=== PATIENT | female | born 1930 | race Caucasian/White ===

== ENCOUNTER 2019-06-24 18:55 | Emergency (ER) | payer MEDICARE, BC ==
[2019-06-24 19:19] VITALS: BP 164/77; PULSE 95
--- NOTE | 2019-06-24 19:52 | EDM.PDOC ---
ED HPI GENERAL MEDICAL PROBLEM - General Chief Complaint: General Stated Complaint: WEAKNESS LEFT LEG AND ARM Time Seen by Provider: 06/24/19 19:46 Source of Information: Reports: Patient History Limitations: Reports: No Limitations - History of Present Illness INITIAL COMMENTS - FREE TEXT/NARRATIVE: Patient is an 88-year-old female who presents to the emergency department this evening with a complaint of bilateral upper extremity and left lower extremity weakness. Patient states approximately 9 a.m. yesterday morning while sitting on the couch, she had the sensation of numbness and tingling to bilateral hands and left lower extremity. Patient states that it was intermittent throughout the day. When she woke this morning she had the same sensation. Her son told her that he noticed she might be walking funny and was concerned. decided to bring her to emergency department for evaluation this evening. Patient denies chest pain, shortness of breath, headache, dizziness, blurry vision, facial numbness, nausea, vomiting, diarrhea, any falls or syncopal episodes. Onset: Gradual Duration: Day(s): Location: Reports: Upper Extremity, Left, Upper Extremity, Right, Lower Extremity, Left Quality: Reports: Other (Numbness and tingling) Improves with: Reports: Other (Spontaneously) Worsens with: Reports: None Associated Symptoms: Reports: No Other Symptoms. Denies: Chest Pain, Cough, Diaphoresis, Fever/Chills, Headaches, Nausea/Vomiting, Shortness of Breath - Related Data Allergies Allergy/AdvReac Type Severity Reaction Status Date / Time Penicillins Allergy Rash Verified 06/24/19 19:19 Sulfa (Sulfonamide Allergy Rash Verified 06/24/19 19:19 Antibiotics) Home Meds: Home Meds Denosumab [Prolia] 60 mg SUBCUT ASDIRECTED 02/18/16 [History] Levothyroxine 88 mcg PO ACBREAKFAST 02/18/16 [History] Calcium Carbonate/Vitamin D3 [Calcium Carb 500 MG] 2 tab PO DAILY 02/14/18 [ History] Omeprazole 20 mg PO DAILY 02/14/18 [History] Anastrozole [Arimidex] 1 mg PO DAILY 08/14/18 [History] Benzonatate 100 mg PO TID PRN 08/14/18 [History] Past Medical History HEENT History: Reports: Cataract, Hard of Hearing, Impaired Vision Gastrointestinal History: Reports: None 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 Endocrine/Metabolic History: Reports: Hypothyroidism Oncologic (Cancer) History: Reports: Breast, Other (See Below) Other Oncologic History: Right breast - Infectious Disease History Infectious Disease History: Reports: Mumps - Past Surgical History GI Surgical History: Reports: Cholecystectomy, Colonoscopy Female Surgical History: Reports: Hysterectomy Endocrine Surgical History: Reports: None Musculoskeletal Surgical History: Reports: Shoulder Surgery Oncologic Surgical History: Reports: Biopsy of Breast, Lumpectomy Social & Family History - Family History Family Medical History: Noncontributory - Tobacco Use Smoking Status *Q: Never Smoker - Caffeine Use Caffeine Use: Reports: Coffee - Recreational Drug Use Recreational Drug Use: No ED ROS GENERAL - Review of Systems Review Of Systems: ROS reveals no pertinent complaints other than HPI. Constitutional: Reports: Weakness HEENT: Reports: No Symptoms Respiratory: Reports: No Symptoms Cardiovascular: Reports: No Symptoms Endocrine: Reports: No Symptoms GI/Abdominal: Reports: No Symptoms : Reports: No Symptoms Musculoskeletal: Reports: No Symptoms Skin: Reports: No Symptoms Neurological: Reports: Numbness (Bilateral upper extremities and left lower extremity) Psychiatric: Reports: No Symptoms Hematologic/Lymphatic: Reports: No Symptoms Immunologic: Reports: No Symptoms ED EXAM, GENERAL - Physical Exam Exam: See Below Exam Limited By: No Limitations General Appearance: Alert, WD/WN, No Apparent Distress Eye Exam: Bilateral Eye: Normal Inspection Nose: Normal Inspection, Normal Mucosa, No Blood Throat/Mouth: Normal Inspection, Normal Oropharynx, No Airway Compromise Head: Atraumatic, Normocephalic Neck: Normal Inspection, Supple, Non-Tender, Full Range of Motion Respiratory/Chest: No Respiratory Distress, Lungs Clear, Normal Breath Sounds, No Accessory Muscle Use, Chest Non-Tender Cardiovascular: Normal Peripheral Pulses, Regular Rate, Rhythm, No Murmur Peripheral Pulses: 2+: Brachial (L), Brachial (R), Radial (L), Radial (R), Posterior Tibial (L), Posterior Tibial (R), Dorsalis Pedis (L), Dorsalis Pedis ( R) GI/Abdominal: Normal Bowel Sounds, Soft, Non-Tender, No Organomegaly, No Distention, No Abnormal Bruit, No Mass Back Exam: Normal Inspection. No: CVA Tenderness (L), CVA Tenderness (R) Extremities: Normal Inspection, Normal Range of Motion, Non-Tender, No Pedal Edema, Normal Capillary Refill Neurological: Alert, Oriented, CN II-XII Intact, Normal Cognition, Normal Gait, No Motor/Sensory Deficits Psychiatric: Normal Affect, Normal Mood Skin Exam: Warm, Dry, Intact, Normal Color, No Rash Lymphatic: No Adenopathy Course - Vital Signs Last Recorded V/S: Last Vital Signs Temp 98.0 F 06/24/19 19:15 Pulse 95 06/24/19 19:15 Resp 18 06/24/19 19:15 BP 164/77 H 06/24/19 19:15 Pulse Ox 94 L 06/24/19 19:15 - Radiology Interpretation Free Text/Narrative:: CT head negative for intracranial process - Re-Assessments/Exams Free Text/Narrative Re-Assessment/Exam: 06/24/19 20:30 Patient afebrile, vital signs stable, symptoms have since resolved. Patient has been is at bedside. Patient will follow-up with Dr. Schultz in next 2-3 days. Departure - Departure Time of Disposition: 20:30 Disposition: Home, Self-Care 01 Clinical Impression: Weakness - Discharge Information Instructions: Weakness, [id number] Referrals: Romina Stover MD [Primary Care Provider] - Forms: ED Department Discharge Additional Instructions: Follow-up with Dr. Schultz next 2-3 days. Return to emergency department sooner if symptoms continue or worsen. Caution when rising from a seated position. - Assessment/Plan Assessment:: Weakness Plan: Follow-up at the clinic
--- NOTE | 2019-06-24 20:23 | CT ---
[id number] CT/CT Head WO IV EXAM: CT Head WO IV CLINICAL DATA: WEAKNESS COMPARISON STUDY: None FINDINGS: No intracranial hemorrhage, extra-axial fluid collection, mass, or acute ischemia. 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 Paranasal sinuses and mastoid air cells are clear. IMPRESSION: No acute intracranial findings. Duane Mar MD 06/24/192021 Thank you for allowing us to participate in the care of your patient.
== END 2019-06-24 20:35 | disposition home or self-care (01) ==
LOC: KA.ED 18:55
DX: R53.1 Weakness (principal); E03.9 Hypothyroidism, unspecified; Z88.0 Allergy status to penicillin; Z79.890 Hormone replacement therapy
CPT/HCPCS: 70450; 99285-25

== ENCOUNTER 2021-05-15 16:55 | Emergency (ER) | payer MEDICARE, BC ==
--- NOTE | 2021-05-15 17:18 | EDM.PDOC ---
ED HPI GENERAL MEDICAL PROBLEM - General Chief Complaint: Genitourinary Problem Stated Complaint: BLADDER INFECTION? Time Seen by Provider: 05/15/21 17:05 Source of Information: Reports: Patient, Family (daughter) - History of Present Illness INITIAL COMMENTS - FREE TEXT/NARRATIVE: Pleasant 89-year-old female presents to the emergency room with her daughter with concern for possible UTI. Family is coming back from [place] for a wedding this weekend and patient began in experiencing some discomfort urgency and frequency with urinating. She denies significant hematuria or dysuria. She states she is she is a poor oral intake with water but drinks quite a bit of coffee. She has been able to be very independent still lives at home and cares for her 91-year-old . He has had a previous a stroke and she manages his cares at home. In the last 10 days she is has had increasing pain mainly across the beltline of the low back rating to both legs. She has had to use a walker. She does get some sciatica type pain going down her legs. She reports her walking distances decreased over the last year and feels that she could not walk more than a block or 2. She is having more frequent episodes she feels of urgency and starting to go to the bathroom. Denies loss of bowel or bladder control. She denies any retention. She denies any saddle paresthesias. She is followed by Dr. Romina Schultz. She has physical therapy scheduled for her lower back and discussion to meet with Kellie Diego for injection was discussed with her. They did discuss possibly proceeding with an MRI of her lumbar spine. Denies experiencing any fever or chills, shortness of breath, chest pain, abdominal pain. Onset: Gradual Onset Date: 05/14/21 Duration: Day(s):, Recurring Location: Reports: Back, Lower Extremity, Left, Lower Extremity, Right Quality: Reports: Ache Severity: Moderate Improves with: Reports: Rest Worsens with: Reports: Other (Ambulation) Associated Symptoms: Reports: No Other Symptoms Lower Back Pain Score (Numeric/FACES): 5 - Related Data Allergies Allergy/AdvReac Type Severity Reaction Status Date / Time Penicillins Allergy Rash Verified 05/15/21 17:57 Sulfa (Sulfonamide Allergy Rash Verified 05/15/21 17:57 Antibiotics) Home Meds: Home Meds Denosumab [Prolia] 60 mg SUBCUT ASDIRECTED 02/18/16 [History] Levothyroxine 88 mcg PO ACBREAKFAST 02/18/16 [History] Calcium Carbonate/Vitamin D3 [Calcium Carb 500 MG] 2 tab PO DAILY 02/14/18 [History] Mirtazapine 15 mg PO BEDTIME PRN 07/14/20 [History] Fluocinonide [Lidex 0.05% Crm] 1 applic VAG ASDIRECTED PRN 05/15/21 [History] Past Medical History HEENT History: Reports: Cataract, Hard of Hearing, Impaired Vision Gastrointestinal History: Reports: None 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 Endocrine/Metabolic History: Reports: Hypothyroidism Oncologic (Cancer) History: Reports: Breast, Other (See Below) Other Oncologic History: Right breast - Infectious Disease History Infectious Disease History: Reports: Mumps - Past Surgical History HEENT Surgical History: Reports: Tonsillectomy GI Surgical History: Reports: Cholecystectomy, Colonoscopy Female Surgical History: Reports: Hysterectomy Endocrine Surgical History: Reports: None Musculoskeletal Surgical History: Reports: Shoulder Surgery Oncologic Surgical History: Reports: Biopsy of Breast, Lumpectomy Social & Family History - Family History Family Medical History: No Pertinent Family History - Caffeine Use Caffeine Use: Reports: Coffee ED ROS GENERAL - Review of Systems Review Of Systems: See Below Constitutional: Reports: No Symptoms HEENT: Reports: No Symptoms Respiratory: Reports: No Symptoms Cardiovascular: Reports: No Symptoms Endocrine: Reports: No Symptoms GI/Abdominal: Reports: No Symptoms : Reports: Frequency, Urgency, Urinary Retention. Denies: Dysuria Musculoskeletal: Reports: No Symptoms Skin: Reports: No Symptoms Neurological: Reports: Numbness, Paresthesia, Difficulty Walking, Weakness Psychiatric: Reports: No Symptoms Hematologic/Lymphatic: Reports: No Symptoms Immunologic: Reports: No Symptoms ED EXAM, RENAL/ - Physical Exam Exam: See Below Exam Limited By: No Limitations General Appearance: Alert, WD/WN, No Apparent Distress Eye Exam: Bilateral Eye: EOMI Ears: Hearing Loss Nose: Normal Inspection Throat/Mouth: Normal Inspection, Normal Voice, No Airway Compromise Head: Atraumatic, Normocephalic Neck: Normal Inspection, Supple, Non-Tender, Full Range of Motion. No: Lymphadenopathy (L), Lymphadenopathy (R) Respiratory/Chest: No Respiratory Distress, Lungs Clear, Normal Breath Sounds, No Accessory Muscle Use, Chest Non-Tender Cardiovascular: Normal Peripheral Pulses, Regular Rate, Rhythm GI/Abdominal: Normal Bowel Sounds, Soft, Non-Tender, No Organomegaly, No Distention, No Abnormal Bruit, No Mass, Pelvis Stable Back Exam: Normal Inspection, Full Range of Motion Extremities: Normal Inspection, Normal Range of Motion, Non-Tender, No Pedal Edema, Normal Capillary Refill Neurological: Alert, Oriented, CN II-XII Intact, Normal Cognition, Normal Gait, No Motor/Sensory Deficits Psychiatric: Normal Affect, Normal Mood Skin Exam: Warm, Dry, Intact, Normal Color, No Rash Lymphatic: No Adenopathy Course - Vital Signs Last Recorded V/S: Last Vital Signs Temp 97.3 F 05/15/21 17:08 Pulse 88 05/15/21 17:08 Resp 16 05/15/21 17:08 BP 193/91 H 05/15/21 17:08 Pulse Ox 99 05/15/21 17:08 - Orders/Labs/Meds Labs: Laboratory Tests 05/15/21 05/15/21 05/15/21 Range/Units 17:50 18:25 18:25 WBC 9.50 (5.00-10.00) 10^3/uL RBC 4.78 (3.80-5.50) 10^6/uL Hgb 14.1 D (12.0-16.0) g/dL Hct 40.9 (37.0-47.0) % MCV 85.6 D (82.0-92.0) fL MCH 29.5 (27.0-31.0) pg MCHC 34.5 (32.0-36.0) g/dL RDW 12.7 (11.5-14.5) % Plt Count 275 (150-400) 10^3/uL MPV 10.2 (7.4-10.4) fL Immature Gran % (Auto) 0.2 (0.0-5.0) % Neut % (Auto) 60.4 (50.0-70.0) % Lymph % (Auto) 31.4 (20.0-40.0) % [place] % (Auto) 7.2 (2.0-8.0) % Eos % (Auto) 0.6 L (1.0-3.0) % Baso % (Auto) 0.2 (0.0-1.0) % Neut # (Auto) 5.74 (2.50-7.00) 10^3/uL Lymph # (Auto) 2.98 (1.00-4.00) 10^3/uL [place] # (Auto) 0.68 (0.10-0.80) 10^3/uL Eos # (Auto) 0.06 L (0.10-0.30) 10^3/uL Baso # (Auto) 0.02 (0.00-0.10) 10^3/uL Immature Gran # (Auto) 0.02 (0.00-0.50) 10^3/uL Sodium 119 L* D (136-145) mmol/L Potassium 4.0 (3.5-5.1) mmol/L Chloride 84 L* D (98-107) mmol/L Carbon Dioxide 25.3 (21.0-32.0) mmol/L Anion Gap 13.7 (5-15) mmol/L BUN 13 (7-18) mg/dL Creatinine 0.58 (0.51-1.17) mg/dL Est Cr Clr Drug Dosing 48.16 mL/min Estimated GFR (MDRD) > 60 mL/min Glucose 100 (70-140) mg/dL Calcium 8.1 L (8.7-10.3) mg/dL Total Bilirubin 0.7 (0.2-1.0) mg/dL AST 20 (15-37) U/L ALT 30 (14-63) U/L Alkaline Phosphatase 41 L (46-116) U/L Total Protein 7.5 (6.4-8.2) g/dL Albumin 4.10 (3.40-5.00) g/dL Specimen Type Urincc Urine Color Yellow (YELLOW) Urine Appearance Clear (CLEAR) Urine pH 7.0 (5.0-9.0) Ur Specific [place] 1.020 (1.005-1.030) Urine Protein Trace H (NEGATIVE) mg/dL Urine Glucose (UA) Negative (NEGATIVE) mg/dL Urine Ketones Trace H (NEGATIVE) mg/dL Urine Occult Blood Moderate H (NEGATIVE) Urine Nitrite Negative (NEGATIVE) Urine Bilirubin Negative (NEGATIVE) Urine Urobilinogen 0.2 (0.2-1.0) E.U./dL Ur Leukocyte Esterase Negative (NEGATIVE) Urine RBC 5-10 H (0-5) /HPF Urine WBC Not seen (0-5) /HPF Ur Epithelial Cells Few /LPF Urine Bacteria Not seen (NONE TO FEW) /HPF Meds: Medications Discontinued Medications Generic Name Dose Route Start Last Admin Trade Name Vincentq PRN Reason Stop Dose Admin Sodium Chloride 1,000 mls @ 1,000 mls/hr 05/15/21 18:13 05/15/21 18:34 Normal Saline IV 05/15/21 19:12 1,000 mls/hr .BOLUS ONE Administration Departure - Departure Time of Disposition: 19:44 Disposition: Home, Self-Care 01 Condition: Good Clinical Impression: Hyponatremia with extracellular fluid depletion, Dehydration with hypernatremia Spinal stenosis of lumbar region Qualifiers: Neurogenic claudication status: without neurogenic claudication Qualified Code(s): M48.061 - Spinal stenosis, lumbar region without neurogenic claudication - Discharge Information Instructions: Hyponatremia, [id number], Spinal Stenosis, [id number], Decision Aid - Spinal Stenosis Referrals: Romina Stover MD [Primary Care Provider] - Forms: ED Department Discharge Additional Instructions: 1. f/u with Dr Vanegas next week. 2. Repeat BMP next week. 3. Encouraged to drink more fluids throughout the day. 4. MRI lumbar spine for spinal stenosis. Sepsis Event Note (ED) - Focused Exam Vital Signs: Vital Signs Temp Pulse Resp BP Pulse Ox 05/15/21 17:08 97.3 F 88 16 193/91 H 99 - Assessment/Plan Assessment:: Hyponatremia Spinal stenosis Dehydration Plan: 1. f/u with Dr Vanegas next week. 2. Repeat BMP next week. 3. Encouraged to drink more fluids throughout the day. 4. MRI lumbar spine for spinal stenosis.
[2021-05-15] MEDS ORDERED: Sodium Chloride 0.9% 1,000 ML IV ONE (18:13)
[2021-05-15 18:53] LABS: ANION GAP 13.7 mmol/L (5-15)
[2021-05-15 19:00] LABS: SODIUM,NA 119 mmol/L (136-145)
[2021-05-15 19:01] LABS: CHLORIDE,CL 84 mmol/L (98-107)
[2021-05-15 20:18] VITALS: BP 138/76; PULSE 91
== END 2021-05-15 19:55 | disposition home or self-care (01) ==
LOC: KA.ED 16:55
DX: M48.061 Spinal stenosis, lumbar region without neurogenic claudication (principal); E86.0 Dehydration; E87.0 Hyperosmolality and hypernatremia; E87.1 Hypo-osmolality and hyponatremia; E03.9 Hypothyroidism, unspecified; Z79.899 Other long term (current) drug therapy; Z88.0 Allergy status to penicillin; Z88.2 Allergy status to sulfonamides
CPT/HCPCS: 36415; 80053; 81001; 85025; 99283; 99284; J7030

== ENCOUNTER 2021-05-16 11:28 | Inpatient (IN) | payer MEDICARE, BC ==
[2021-05-16] MEDS ORDERED: Sodium Chloride 0.9% 10 ML Syringe FLUSH PRN (11:29)
[2021-05-16] MEDS ORDERED: Ondansetron 4 MG/2 ML SDV IVPUSH ONE (11:30)
[2021-05-16] MEDS: Sodium Chloride 0.9% 1,000 ML IV SCH ×2 (12:23→20:33)
[2021-05-16 13:27] LABS: SODIUM,NA 120 mmol/L (136-145)
[2021-05-16] MEDS ORDERED: Mirtazapine 15 MG Tab PO PRN (13:32)
[2021-05-16] MEDS ORDERED: FLUOCINONIDE VAG PRN (13:32)
[2021-05-16] MEDS ORDERED: Acetaminophen 325 MG Tab PO PRN (13:33)
[2021-05-16] MEDS ORDERED: Ondansetron 4 MG/2 ML SDV IVPUSH PRN (13:35)
[2021-05-16] MEDS ORDERED: Denosumab 60 MG/1 ML Syringe SUBCUT SCH (13:45)
[2021-05-16 14:22] LABS: CHLORIDE,CL 86 mmol/L (98-107)
--- NOTE | 2021-05-16 14:29 | PCM.HP.2 ---
H&P History of Present Illness - General Date of Service: 05/16/21 Admit Problem/Dx: Admission Diagnosis/Problem Admission Diagnosis/Problem Hyponatremia Source of Information: Patient, EMS Notes Reviewed, Family - History of Present Illness Initial Comments - Free Text/Narative: Carleen is seen today for direct admission due to weakness, vomiting and hyponatremia. She was seen in the clinic on 05/09 with low back pain radiation to her bilateral legs. She had no bowel or bladder issues that she mentioned when questioned. She was started on prednisone 60 mg PO daily x 5 days and scheduled for outpatient PT. At that time she had been using a walker to assist with walking due to pain and feeling her gait was unsteady. That is not usual for her. She was able to attend her grandson's wedding this past weekend in [place] and admittedly didn't drink a lot of water as she did not want to have to stop very frequently. In the car on the way home on 05/15 she was having urinary frequency and urgency and felt she had a UTI. Rather than wait to be seen today (05/16) she presented to the ER. UA was negative for infection but did show some ketones and protein and her sodium was noted to be 119 with a chloride of 84. Potassium was normal at 4. BUN 13 and creatinine 0.58. Glucose was 81. She did mention her low back pain and leg symptoms to the ER provider and he felt she may have spinal stenosis and recommended an MRI. She was given 1L of NS and discharged to home with recommendation for follow-up this week. Unfortunately, she became very nauseated overnight with several emesis and an episode of a fall that was felt to perhaps be a vasovagal syncope episode. No injury noted. When I ask Carleen more about her urinary symptoms she states for the past year she has "numbness" in her vaginal are and occasionally she will "pass a bowel movement without knowing I needed to go at the same time I urinate". The stool is formed. She has no bowel incontinence of fecal retention. She notes she thinks her bladder has "slipped and I can push it back up." This has also been for around a year. She is admitted for hyponatremia, weakness, nausea and vomiting. - Related Data Allergies/Adverse Reactions: Allergies Allergy/AdvReac Type Severity Reaction Status Date / Time Penicillins Allergy Rash Verified 05/16/21 12:52 Sulfa (Sulfonamide Allergy Rash Verified 05/16/21 12:52 Antibiotics) Home Medications: Home Meds Denosumab [Prolia] 60 mg SUBCUT ASDIRECTED 02/18/16 [History] Calcium Carbonate/Vitamin D3 [Calcium Carb 500 MG] 2 tab PO DAILY 02/14/18 [History] Mirtazapine 15 mg PO BEDTIME PRN 07/14/20 [History] Fluocinonide [Lidex 0.05% Crm] 1 applic VAG ASDIRECTED PRN 05/15/21 [History] Levothyroxine [Synthroid] 88 mcg PO ACBREAKFAST 05/16/21 [History] Past Medical History HEENT History: Reports: Cataract, Hard of Hearing, Impaired Vision Cardiovascular History: Reports: None Respiratory History: Reports: None Gastrointestinal History: Reports: None Genitourinary History: Reports: Retention, Urinary, Other (See Below) Other Genitourinary History: Prolapsed bladder [employer] History: Reports: , 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 Neurological History: Reports: None Psychiatric History: Reports: None Endocrine/Metabolic History: Reports: Hypothyroidism Oncologic (Cancer) History: Reports: Breast, Other (See Below) Other Oncologic History: Right breast Dermatologic History: Reports: None - Infectious Disease History Infectious Disease History: Reports: Mumps - Past Surgical History HEENT Surgical History: Reports: Tonsillectomy GI Surgical History: Reports: Cholecystectomy, Colonoscopy Female Surgical History: Reports: Hysterectomy Endocrine Surgical History: Reports: None Musculoskeletal Surgical History: Reports: Shoulder Surgery Oncologic Surgical History: Reports: Biopsy of Breast, Lumpectomy Social & Family History - Family History Family Medical History: No Pertinent Family History - Tobacco Use Tobacco Use Status *Q: Never Tobacco User - Caffeine Use Caffeine Use: Reports: Coffee - Recreational Drug Use Recreational Drug Use: No H&P Review of Systems - Review of Systems: Review Of Systems: Comprehensive ROS is negative, except as noted in HPI. Exam - Exam Exam: See Below - Vital Signs Vital Signs: Last Vital Signs Temp 98.5 F 05/16/21 13:27 Pulse 85 05/16/21 13:27 Resp 20 05/16/21 13:27 BP 143/71 H 05/16/21 13:27 Pulse Ox 98 05/16/21 13:48 Weight: 139 lb 4.8 oz - Exam General: Alert, Oriented, Cooperative, Mild Distress Lungs: Clear to Auscultation, Normal Respiratory Effort Cardiovascular: Regular Rate, Regular Rhythm GI/Abdominal Exam: Normal Bowel Sounds, Soft, Non-Tender (Female) Exam: Normal External Exam, Other (There is bladder prolapse obvious at the vaginal introitus.) Neurological: Cranial Nerves Intact, Normal Tone, Other (She has intact sensati on in the vaginal and rectal areas.) - Patient Data Lab Results Last 24 hrs: Laboratory Results - last 24 hr 05/16/21 05/16/21 Range/Units 12:46 12:53 WBC 9.48 (5.00-10.00) 10^3/uL RBC 4.40 (3.80-5.50) 10^6/uL Hgb 13.0 (12.0-16.0) g/dL Hct 37.4 (37.0-47.0) % MCV 85.0 (82.0-92.0) fL MCH 29.5 (27.0-31.0) pg MCHC 34.8 (32.0-36.0) g/dL RDW 12.4 (11.5-14.5) % Plt Count 248 (150-400) 10^3/uL MPV 9.8 (7.4-10.4) fL Immature Gran % (Auto) 0.3 (0.0-5.0) % Neut % (Auto) 75.4 H (50.0-70.0) % Lymph % (Auto) 17.8 L (20.0-40.0) % [place] % (Auto) 6.2 (2.0-8.0) % Eos % (Auto) 0.2 L (1.0-3.0) % Baso % (Auto) 0.1 (0.0-1.0) % Neut # (Auto) 7.14 H (2.50-7.00) 10^3/uL Lymph # (Auto) 1.69 (1.00-4.00) 10^3/uL [place] # (Auto) 0.59 (0.10-0.80) 10^3/uL Eos # (Auto) 0.02 L (0.10-0.30) 10^3/uL Baso # (Auto) 0.01 (0.00-0.10) 10^3/uL Immature Gran # (Auto) 0.03 (0.00-0.50) 10^3/uL SARS CoV-2 RNA Rapid YEISON Negative (NEGATIVE) Result Diagrams: 05/16/21 12:53 05/17/21 07:40 Sepsis Event Note - Evaluation Sepsis Screening Result: No Definite Risk - Focused Exam Vital Signs: Vital Signs Temp Pulse Resp BP BP Pulse Ox Pulse Ox 05/16/21 13:48 98 05/16/21 13:27 98.5 F 85 20 143/71 H 98 05/16/21 12:17 97.1 F 82 16 130/62 95 Problem List Initiated/Reviewed/Updated: Yes Orders Last 24hrs: Active Orders 24 hr Category Date Time Status Patient Status [ADT] Routine ADT 05/16/21 13:28 Ordered Bladder Scan [RC] ASDIRECTED Care 05/16/21 13:35 Ordered Oxygen Therapy [RC] PRN Care 05/16/21 13:28 Ordered Peripheral IV Care [RC] . DIRECTED Care 05/16/21 11:30 Active Up With Assistance [RC] ASDIRECTED Care 05/16/21 13:28 Ordered VTE/DVT Education [RC] PER UNIT ROUTINE Care 05/16/21 13:28 Ordered Vital Signs [RC] Q4H Care 05/16/21 13:28 Ordered PT Evaluation and Treatment [CONS] Routine Cons 05/16/21 13:28 Ordered Regular Diet [DIET] Diet 05/16/21 Dinner Ordered Lumbar Spine Comp wo Cont [MR] Routine Exams 05/19/21 09:00 Ordered BMP [BASIC METABOLIC PANEL,BMP] [CHEM] AM Lab 05/17/21 05:11 Ordered BMP [BASIC METABOLIC PANEL,BMP] [CHEM] AM Lab 05/18/21 05:11 Ordered BMP [BASIC METABOLIC PANEL,BMP] [CHEM] AM Lab 05/19/21 05:11 Ordered BMP [BASIC METABOLIC PANEL,BMP] [CHEM] Routine Lab 05/16/21 12:53 Received Acetaminophen [TylenoL] Med 05/16/21 13:33 Ordered 650 mg PO Q6H PRN Calcium Carbonate/Vitamin D3 [Calcium Carb 500 MG] Med 05/17/21 09:00 Ordered 2 tab PO DAILY Denosumab [Prolia] Med 05/16/21 13:45 Ordered 60 mg SUBCUT ASDIRECTED Fluocinonide [Lidex 0.05% Crm] Med 05/16/21 13:32 Ordered 1 applic VAG ASDIRECTED PRN Levothyroxine [Synthroid] Med 05/17/21 07:30 Ordered 88 mcg PO ACBREAKFAST Mirtazapine [Remeron] Med 05/16/21 13:32 Ordered 15 mg PO BEDTIME PRN Ondansetron [Zofran] Med 05/16/21 13:35 Ordered 4 mg IVPUSH Q4H PRN Sodium Chloride 0.9% [Normal Saline] 1,000 ml Med 05/16/21 11:30 Active IV ASDIRECTED Sodium Chloride 0.9% [Saline Flush] Med 05/16/21 11:29 Active 10 ml FLUSH Q8HR PRN Peripheral IV Insertion Adult [OM.PC] Routine Oth 05/16/21 11:29 Ordered Resuscitation Status Routine Resus Stat 05/16/21 13:28 Ordered Medication Orders Acetaminophen (Acetaminophen 325 Mg Tab) 650 mg PO Q6H PRN PRN Reason: Pain Calcium Citrate (Calcium Citrate/Vitamin D3 315 Mg-250 Unit Tab) 2 tab PO DAILY [facility] Denosumab (Denosumab 60 Mg/1 Ml Syringe) 60 mg SUBCUT ASDIRECTED [facility] Sodium Chloride (Normal Saline) 1,000 mls @ 125 mls/hr IV ASDIRECTED [facility] Last Admin: 05/16/21 12:23 Dose: 125 mls/hr Documented by: JOSE Levothyroxine Sodium (Levothyroxine 88 Mcg Tab) 88 mcg PO ACBREAKFAST [facility] Mirtazapine (Mirtazapine 15 Mg Tab) 15 mg PO BEDTIME PRN PRN Reason: Insomnia Non-Formulary Medication (Fluocinonide [Lidex 0.05% Crm]) 1 applic VAG ASDIRECTED PRN PRN Reason: Itching Ondansetron HCl (Ondansetron 4 Mg/2 Ml Sdv) 4 mg IVPUSH Q4H PRN PRN Reason: Nausea/Vomiting Sodium Chloride (Sodium Chloride 0.9% 10 Ml Syringe) 10 ml FLUSH Q8HR PRN PRN Reason: keep vein open Assessment/Plan Comment:: Admission Diagnoses: Hyponatremia - Likely hypovolemic, NS at 125 mL per hour and repeat BMP upon admission and daily. Low back pain with radiation - PT eval and treat - MRI of the lumbar spine on 05/19 Urinary urgency - UA negative - Bladder scan and catheterize if >300 mL of urine retained Nausea with vomiting - Ondansetron 4 mg IV q 4 hours PRN Secondary Diagnoses: Hypothyroidism - Levothyroxine 88 mcg PO daily Insomnia - Mirtazapine 15 mg PO qhs Osteoporosis - Prolia 60 mg q 6 months as an outpatient - Calcium supplement, 2 tabs PO daily Hx R breast cancer - Completed treatment
[2021-05-17] MEDS: Sodium Chloride 0.9% 1,000 ML IV SCH ×2 (06:29→16:53)
[2021-05-17] MEDS: Levothyroxine 88 MCG Tab PO SCH (07:58)
[2021-05-17 08:13] LABS: ANION GAP 12.5 mmol/L (5-15); CHLORIDE,CL 95 mmol/L (98-107); SODIUM,NA 129 mmol/L (136-145)
[2021-05-17] MEDS: Calcium Citrate/Vitamin D3 315 MG-250 Unit Tab PO SCH (08:29)
--- NOTE | 2021-05-17 09:08 | PCM.PN ---
- General Info Date of Service: 05/17/21 Admission Dx/Problem (Free Text): Admission Diagnosis/Problem Admission Diagnosis/Problem Hyponatremia - Review of Systems Systems Review Comment:: Carleen is seen this morning on inpatient rounds. She was admitted 05/16 with hyponatremia, weakness, low back pain with radiation to the bilateral legs. She was been receiving IVF's, she received 1 L NS at 125 mL per hour and has been running at 100mL per since last evening. Her sodium is up from 120 to 129 today and her chloride is up from 84 to 95. When asked if she is feeling better she states "I never really felt that bad". She also had emesis prior to admission but with one dose of ondansetron IV her nausea has been resolved and she has b een eating. She still complains of back pain with radiation to the legs. She is scheduled for PT consult today and MRI on 05/19 as there is some concern for spinal stenosis. Prior to admission she had been seen in the clinic for her back pain and was given prednisone 60 mg PO daily x 5 days and she said she did feel better while on that but then pain worsened when she was done. No saddle anesthesia. - Patient Data Vitals - Most Recent: Last Vital Signs Temp 97.3 F 05/17/21 06:28 Pulse 82 05/17/21 06:28 Resp 24 H 05/17/21 06:28 BP 152/70 H 05/17/21 06:28 Pulse Ox 98 05/17/21 06:28 Weight - Most Recent: 139 lb 4.8 oz I&O - Last 24 Hours: Intake & Output 05/16/21 05/17/21 05/17/21 22:59 06:59 14:59 Intake Total 1923 910 Output Total 500 900 Balance 1423 10 Lab Results Last 24 Hours: Laboratory Results - last 24 hr 05/16/21 05/16/21 05/16/21 Range/Units 12:46 12:53 12:53 WBC 9.48 (5.00-10.00) 10^3/uL RBC 4.40 (3.80-5.50) 10^6/uL Hgb 13.0 (12.0-16.0) g/dL Hct 37.4 (37.0-47.0) % MCV 85.0 (82.0-92.0) fL MCH 29.5 (27.0-31.0) pg MCHC 34.8 (32.0-36.0) g/dL RDW 12.4 (11.5-14.5) % Plt Count 248 (150-400) 10^3/uL MPV 9.8 (7.4-10.4) fL Immature Gran % (Auto) 0.3 (0.0-5.0) % Neut % (Auto) 75.4 H (50.0-70.0) % Lymph % (Auto) 17.8 L (20.0-40.0) % [place] % (Auto) 6.2 (2.0-8.0) % Eos % (Auto) 0.2 L (1.0-3.0) % Baso % (Auto) 0.1 (0.0-1.0) % Neut # (Auto) 7.14 H (2.50-7.00) 10^3/uL Lymph # (Auto) 1.69 (1.00-4.00) 10^3/uL [place] # (Auto) 0.59 (0.10-0.80) 10^3/uL Eos # (Auto) 0.02 L (0.10-0.30) 10^3/uL Baso # (Auto) 0.01 (0.00-0.10) 10^3/uL Immature Gran # (Auto) 0.03 (0.00-0.50) 10^3/uL Sodium 120 L (136-145) mmol/L Potassium 3.6 (3.5-5.1) mmol/L Chloride 86 L* (98-107) mmol/L Carbon Dioxide 27.6 (21.0-32.0) mmol/L Anion Gap 10.0 (5-15) mmol/L BUN 10 (7-18) mg/dL Creatinine 0.57 (0.51-1.17) mg/dL Est Cr Clr Drug Dosing TNP Estimated GFR (MDRD) > 60 mL/min Glucose 110 (70-140) mg/dL Calcium 6.9 L (8.7-10.3) mg/dL SARS CoV-2 RNA Rapid YEISON Negative (NEGATIVE) 05/17/21 Range/Units 07:40 WBC (5.00-10.00) 10^3/uL RBC (3.80-5.50) 10^6/uL Hgb (12.0-16.0) g/dL Hct (37.0-47.0) % MCV (82.0-92.0) fL MCH (27.0-31.0) pg MCHC (32.0-36.0) g/dL RDW (11.5-14.5) % Plt Count (150-400) 10^3/uL MPV (7.4-10.4) fL Immature Gran % (Auto) (0.0-5.0) % Neut % (Auto) (50.0-70.0) % Lymph % (Auto) (20.0-40.0) % [place] % (Auto) (2.0-8.0) % Eos % (Auto) (1.0-3.0) % Baso % (Auto) (0.0-1.0) % Neut # (Auto) (2.50-7.00) 10^3/uL Lymph # (Auto) (1.00-4.00) 10^3/uL [place] # (Auto) (0.10-0.80) 10^3/uL Eos # (Auto) (0.10-0.30) 10^3/uL Baso # (Auto) (0.00-0.10) 10^3/uL Immature Gran # (Auto) (0.00-0.50) 10^3/uL Sodium 129 L (136-145) mmol/L Potassium 3.6 (3.5-5.1) mmol/L Chloride 95 L (98-107) mmol/L Carbon Dioxide 25.1 (21.0-32.0) mmol/L Anion Gap 12.5 (5-15) mmol/L BUN 8 (7-18) mg/dL Creatinine 0.60 (0.51-1.17) mg/dL Est Cr Clr Drug Dosing 46.55 Estimated GFR (MDRD) > 60 mL/min Glucose 85 (70-140) mg/dL Calcium 7.2 L (8.7-10.3) mg/dL SARS CoV-2 RNA Rapid YEISON (NEGATIVE) Med Orders - Current: Current Medications Acetaminophen (Acetaminophen 325 Mg Tab) 650 mg PO Q6H PRN PRN Reason: Pain Calcium Citrate (Calcium Citrate/Vitamin D3 315 Mg-250 Unit Tab) 2 tab PO DAILY [facility] Last Admin: 05/17/21 08:29 Dose: 2 tab Documented by: Sodium Chloride (Normal Saline) 1,000 mls @ 125 mls/hr IV ASDIRECTED [facility] Last Admin: 05/17/21 06:29 Dose: 100 mls/hr Documented by: Levothyroxine Sodium (Levothyroxine 88 Mcg Tab) 88 mcg PO ACBREAKFAST [facility] Last Admin: 05/17/21 07:58 Dose: 88 mcg Documented by: Mirtazapine (Mirtazapine 15 Mg Tab) 15 mg PO BEDTIME PRN PRN Reason: Insomnia Ondansetron HCl (Ondansetron 4 Mg/2 Ml Sdv) 4 mg IVPUSH Q4H PRN PRN Reason: Nausea/Vomiting Sodium Chloride (Sodium Chloride 0.9% 10 Ml Syringe) 10 ml FLUSH Q8HR PRN PRN Reason: keep vein open Discontinued Medications Ondansetron HCl (Ondansetron 4 Mg/2 Ml Sdv) 4 mg IVPUSH ONETIME ONE Stop: 05/16/21 11:31 Last Admin: 05/16/21 12:22 Dose: 4 mg Documented by: - Exam General: Alert, Oriented, Cooperative, No Acute Distress Lungs: Clear to Auscultation, Normal Respiratory Effort Cardiovascular: Regular Rate, Regular Rhythm, No Murmurs GI/Abdominal Exam: Normal Bowel Sounds Extremities: No Pedal Edema - Patient Data Lab Results Last 24 hrs: Laboratory Results - last 24 hr 05/16/21 05/16/21 05/16/21 Range/Units 12:46 12:53 12:53 WBC 9.48 (5.00-10.00) 10^3/uL RBC 4.40 (3.80-5.50) 10^6/uL Hgb 13.0 (12.0-16.0) g/dL Hct 37.4 (37.0-47.0) % MCV 85.0 (82.0-92.0) fL MCH 29.5 (27.0-31.0) pg MCHC 34.8 (32.0-36.0) g/dL RDW 12.4 (11.5-14.5) % Plt Count 248 (150-400) 10^3/uL MPV 9.8 (7.4-10.4) fL Immature Gran % (Auto) 0.3 (0.0-5.0) % Neut % (Auto) 75.4 H (50.0-70.0) % Lymph % (Auto) 17.8 L (20.0-40.0) % [place] % (Auto) 6.2 (2.0-8.0) % Eos % (Auto) 0.2 L (1.0-3.0) % Baso % (Auto) 0.1 (0.0-1.0) % Neut # (Auto) 7.14 H (2.50-7.00) 10^3/uL Lymph # (Auto) 1.69 (1.00-4.00) 10^3/uL [place] # (Auto) 0.59 (0.10-0.80) 10^3/uL Eos # (Auto) 0.02 L (0.10-0.30) 10^3/uL Baso # (Auto) 0.01 (0.00-0.10) 10^3/uL Immature Gran # (Auto) 0.03 (0.00-0.50) 10^3/uL Sodium 120 L (136-145) mmol/L Potassium 3.6 (3.5-5.1) mmol/L Chloride 86 L* (98-107) mmol/L Carbon Dioxide 27.6 (21.0-32.0) mmol/L Anion Gap 10.0 (5-15) mmol/L BUN 10 (7-18) mg/dL Creatinine 0.57 (0.51-1.17) mg/dL Est Cr Clr Drug Dosing TNP Estimated GFR (MDRD) > 60 mL/min Glucose 110 (70-140) mg/dL Calcium 6.9 L (8.7-10.3) mg/dL SARS CoV-2 RNA Rapid YEISON Negative (NEGATIVE) 05/17/21 Range/Units 07:40 WBC (5.00-10.00) 10^3/uL RBC (3.80-5.50) 10^6/uL Hgb (12.0-16.0) g/dL Hct (37.0-47.0) % MCV (82.0-92.0) fL MCH (27.0-31.0) pg MCHC (32.0-36.0) g/dL RDW (11.5-14.5) % Plt Count (150-400) 10^3/uL MPV (7.4-10.4) fL Immature Gran % (Auto) (0.0-5.0) % Neut % (Auto) (50.0-70.0) % Lymph % (Auto) (20.0-40.0) % [place] % (Auto) (2.0-8.0) % Eos % (Auto) (1.0-3.0) % Baso % (Auto) (0.0-1.0) % Neut # (Auto) (2.50-7.00) 10^3/uL Lymph # (Auto) (1.00-4.00) 10^3/uL [place] # (Auto) (0.10-0.80) 10^3/uL Eos # (Auto) (0.10-0.30) 10^3/uL Baso # (Auto) (0.00-0.10) 10^3/uL Immature Gran # (Auto) (0.00-0.50) 10^3/uL Sodium 129 L (136-145) mmol/L Potassium 3.6 (3.5-5.1) mmol/L Chloride 95 L (98-107) mmol/L Carbon Dioxide 25.1 (21.0-32.0) mmol/L Anion Gap 12.5 (5-15) mmol/L BUN 8 (7-18) mg/dL Creatinine 0.60 (0.51-1.17) mg/dL Est Cr Clr Drug Dosing 46.55 Estimated GFR (MDRD) > 60 mL/min Glucose 85 (70-140) mg/dL Calcium 7.2 L (8.7-10.3) mg/dL SARS CoV-2 RNA Rapid YEISON (NEGATIVE) Result Diagrams: 05/16/21 12:53 05/17/21 07:40 Sepsis Event Note - Evaluation Sepsis Screening Result: No Definite Risk - Focused Exam Vital Signs: Vital Signs Temp Pulse Resp BP Pulse Ox 05/17/21 06:28 97.3 F 82 24 H 152/70 H 98 05/17/21 03:00 98.3 F 86 20 136/67 99 05/16/21 22:13 98.4 F 89 20 126/65 92 L - Problem List Review Problem List Initiated/Reviewed/Updated: Yes - My Orders Last 24 Hours: My Active Orders 05/16/21 11:29 Sodium Chloride 0.9% [Saline Flush] 10 ml FLUSH Q8HR PRN Peripheral IV Insertion Adult [OM.PC] Routine 05/16/21 11:30 Sodium Chloride 0.9% [Normal Saline] 1,000 ml IV ASDIRECTED 05/16/21 13:28 Patient Status [ADT] Routine Oxygen Therapy [RC] PRN Up With Assistance [RC] ASDIRECTED Vital Signs [RC] 03,07,11,15,19,23 PT Evaluation and Treatment [CONS] Routine Resuscitation Status Routine 05/16/21 13:32 Mirtazapine [Remeron] 15 mg PO BEDTIME PRN 05/16/21 13:33 Acetaminophen [TylenoL] 650 mg PO Q6H PRN 05/16/21 13:35 Bladder Scan [RC] ASDIRECTED Ondansetron [Zofran] 4 mg IVPUSH Q4H PRN 05/16/21 Dinner Regular Diet [DIET] 05/17/21 07:30 Levothyroxine [Synthroid] 88 mcg PO ACBREAKFAST 05/17/21 09:00 Calcium Citrate/Vitamin D3 [Calcium Citrate + D] 2 tab PO DAILY 05/18/21 05:11 BMP [BASIC METABOLIC PANEL,BMP] [CHEM] AM 05/19/21 05:11 BMP [BASIC METABOLIC PANEL,BMP] [CHEM] AM 05/19/21 09:00 Lumbar Spine Comp wo Cont [MR] Routine - Plan Plan:: Admission Diagnoses: Hyponatremia - Likely hypovolemic, NS at 125 mL per hour dropped to 100 mL per our on 05/16 in the evening. - Sodium today improved from 120 to 129. Correcting more quickly that I expected. Low back pain with radiation - PT eval and treat - MRI of the lumbar spine on 05/19 Urinary urgency - UA negative - Bladder scan and catheterize if >300 mL of urine retained Nausea with vomiting - Ondansetron 4 mg IV q 4 hours PRN Secondary Diagnoses: Hypothyroidism - Levothyroxine 88 mcg PO daily Insomnia - Mirtazapine 15 mg PO qhs Osteoporosis - Prolia 60 mg q 6 months as an outpatient - Calcium supplement, 2 tabs PO daily Hx R breast cancer - Completed treatment Anticipate discharge on 05/18 as she has improved more quickly than I anticipated. She is anxious to return home to her . [facility] PT eval results prior to discharge.
[2021-05-18] MEDS: Sodium Chloride 0.9% 1,000 ML IV SCH (02:59)
[2021-05-18] MEDS: Levothyroxine 88 MCG Tab PO SCH (06:30)
[2021-05-18 06:48] VITALS: BP 155/79; PULSE 82
[2021-05-18 08:04] LABS: ANION GAP 8.5 mmol/L (5-15); CHLORIDE,CL 96 mmol/L (98-107); SODIUM,NA 130 mmol/L (136-145)
[2021-05-18] MEDS: Calcium Citrate/Vitamin D3 315 MG-250 Unit Tab PO SCH (08:26)
--- NOTE | 2021-05-18 09:20 | PCM.DCSUM1 ---
Discharge Summary - Hospital Course Free Text/Narrative:: Admission Date: 05/16/2021 Discharge Date: 05/18/2021 Admission Diagnoses: Hyponatremia, hypovolemic, improving - She has had NS running while inpatient, sodium improved from 119 in ER the day prior to admission to 130. - Sodium was 133 on outpatient labs done 05/03/2021 Low back pain with radiation - PT eval and treat, referral for home health PT/OT - MRI of the lumbar spine on 05/19 as an ou tpatient Urinary urgency - UA negative - Bladder scan and catheterize if >300 mL of urine retained Bladder prolapse - [employer] referral as outpatient to discuss options, patient prefers [facility] Nausea with vomiting, resolved Secondary Diagnoses: Hypothyroidism - Levothyroxine 88 mcg PO daily Insomnia - Mirtazapine 15 mg PO qhs Osteoporosis - Prolia 60 mg q 6 months as an outpatient - Calcium supplement, 2 tabs PO daily Hx R breast cancer - Completed treatment Carleen was a direct admission on 05/16/2021 after being seen in the ER on 05/15 due to weakness, vomiting and hyponatremia. She was seen in the clinic on 05/09 with low back pain radiation to her bilateral legs. She had no bowel or bladder issues that she mentioned when questioned. She was started on prednisone 60 mg PO daily x 5 days and scheduled for outpatient PT. At that time she had been using a walker to assist with walking due to pain and feeling her gait was unsteady. That is not usual for her. She was able to attend her grandson's wedding this past weekend in [place] and admittedly didn't drink a lot of water as she did not want to have to stop very frequently. In the car on the way home on 05/15 she was having urinary frequency and urgency and felt she had a UTI. Rather than wait to be seen in the clinic on 05/16 she presented to the ER. UA was negative for infection but did show some ketones and protein and her sodium was noted to be 119 with a chloride of 84. Potassium was normal at 4. BUN 13 and creatinine 0.58. Glucose was 81. She did mention her low back pain and leg symptoms to the ER provider and he felt she may have spinal stenosis and recommended an MRI. She was given 1L of NS and discharged to home with recommendation for follow-up this week. Unfortunately, she became very nauseated that evening with several emesis and an episode of a fall that was felt to perhaps be a vasovagal syncope episode. No injury noted. When I ask Carleen more about her urinary symptoms she states for the past year she has "numbness" in her vaginal are and occasionally she will "pass a bowel movement without knowing I needed to go at the same time I urinate". The stool is formed. She has no bowel incontinence of fecal retention. She notes she thinks her bladder has "slipped and I can push it back up." This has also been for around a year. On physical exam she had intact sensation in the perineal area but she did have an obvious bladder prolapse. She would be interested in seeing what options are available to her for treatment of this issue and she would prefer [employer] at [facility] in [place], this can be arranged as an outpatient. Upon admission NS was started at 125 mL per hour for 1 liter and then dropped back to 100 mL per hour. Sodium corrected from 119 - 130 at discharge. Baseline sodium ranges from 133-136 per outpatient labs. Sodium corrected more quickly than anticipated and I feel she is safe to discharge to home with follow-up in the clinic in 7-10 days with a BMP. She had no further emesis after one dose on ondansetron and was eating and drinking normally. PT evaluation was done on 05/17 and exercises were given to her to help reduce her low back pain. This is the order and face to face encounter for home health services to include: 1. Nursing 2. PT 3. OT 4. Aide Carleen would benefit from [facility] for medication set up, monitoring of blood pressure. She would benefit from PT/OT for home safety evaluation as well as therapy for her low back pain with radiation to her bilateral legs that is causing unsteady gait with reported weakness. She would benefit from a bath aide to help as well. She is homebound due to her difficulty with ambulation. Carleen will be followed by Romina Lindsey MD in the community setting and she will sign home health orders. Diagnosis: Stroke: No Modified Sravani Scale: No Signif.Disability Despite Sympt.Able to Carry Out Usual Act./Duties Modified Bovill Scale Score: 1 - Discharge Data Discharge Date: 05/18/21 Discharge Disposition: Home, W Home Health Agency 06 Condition: Good - Referral to Home Health Date of Face to Face Encounter: 05/18/21 Reason for Homebound Status: Weakness, gait instability Primary Care Physician: Romina Stover MD Skilled Need: Nursing, PT/OT, Aide - Patient Summary/Data Consults: Consultations 05/16/21 13:28 PT Evaluation and Treatment [CONS] Routine 05/17/21 13:35 Consult to Case Management/Marketing Project Lead [CONS] Routine Recommended Follow-up Testing/Procedures: MRI lumbar spine 05/19/2021 - Patient Instructions Diet: Regular Diet as Tolerated - Discharge Plan *PRESCRIPTION DRUG MONITORING PROGRAM REVIEWED*: Not Applicable *COPY OF PRESCRIPTION DRUG MONITORING REPORT IN PATIENT TIFF: Not Applicable Home Medications: Home Meds Denosumab [Prolia] 60 mg SUBCUT ASDIRECTED 02/18/16 [History] Calcium Carbonate/Vitamin D3 [Calcium Carb 500 MG] 2 tab PO DAILY 02/14/18 [History] Mirtazapine 15 mg PO BEDTIME PRN 07/14/20 [History] Fluocinonide [Lidex 0.05% Crm] 1 applic VAG ASDIRECTED PRN 05/15/21 [History] Levothyroxine [Synthroid] 88 mcg PO ACBREAKFAST 05/16/21 [History] Referrals: [facility] [place] [Outside] - Discharge Summary/Plan Comment DC Time >30 min.: No Total # of Minutes for Discharge Time: 25 - General Info Date of Service: 05/18/21 Admission Dx/Problem (Free Text: Admission Diagnosis/Problem Admission Diagnosis/Problem Hyponatremia - Patient Data Vitals - Most Recent: Last Vital Signs Temp 98.0 F 05/18/21 06:46 Pulse 82 05/18/21 06:46 Resp 20 05/18/21 06:46 BP 155/79 H 05/18/21 06:46 Pulse Ox 98 05/18/21 06:46 Weight - Most Recent: 139 lb 4.8 oz I&O - Last 24 hours: Intake & Output 05/17/21 05/18/21 05/18/21 22:59 06:59 14:59 Intake Total 1578 984 Output Total 1300 600 Balance 278 384 Lab Results - Last 24 hrs: Laboratory Results - last 24 hr 05/18/21 Range/Units 07:25 Sodium 130 L (136-145) mmol/L Potassium 3.9 (3.5-5.1) mmol/L Chloride 96 L (98-107) mmol/L Carbon Dioxide 29.4 (21.0-32.0) mmol/L Anion Gap 8.5 (5-15) mmol/L BUN 7 (7-18) mg/dL Creatinine 0.58 (0.51-1.17) mg/dL Est Cr Clr Drug Dosing 48.16 mL/min Estimated GFR (MDRD) > 60 mL/min Glucose 89 (70-140) mg/dL Calcium 7.3 L (8.7-10.3) mg/dL Med Orders - Current: Current Medications Acetaminophen (Acetaminophen 325 Mg Tab) 650 mg PO Q6H PRN PRN Reason: Pain Calcium Citrate (Calcium Citrate/Vitamin D3 315 Mg-250 Unit Tab) 2 tab PO DAILY [facility] Last Admin: 05/18/21 08:26 Dose: 2 tab Documented by: Sodium Chloride (Normal Saline) 1,000 mls @ 100 mls/hr IV ASDIRECTED [facility] Last Admin: 05/18/21 02:59 Dose: 100 mls/hr Documented by: Levothyroxine Sodium (Levothyroxine 88 Mcg Tab) 88 mcg PO ACBREAKFAST [facility] Last Admin: 05/18/21 06:30 Dose: 88 mcg Documented by: Mirtazapine (Mirtazapine 15 Mg Tab) 15 mg PO BEDTIME PRN PRN Reason: Insomnia Ondansetron HCl (Ondansetron 4 Mg/2 Ml Sdv) 4 mg IVPUSH Q4H PRN PRN Reason: Nausea/Vomiting Sodium Chloride (Sodium Chloride 0.9% 10 Ml Syringe) 10 ml FLUSH Q8HR PRN PRN Reason: keep vein open Discontinued Medications Ondansetron HCl (Ondansetron 4 Mg/2 Ml Sdv) 4 mg IVPUSH ONETIME ONE Stop: 05/16/21 11:31 Last Admin: 05/16/21 12:22 Dose: 4 mg Documented by: - Exam General: Reports: Alert, Oriented, Cooperative, No Acute Distress Lungs: Reports: Clear to Auscultation, Normal Respiratory Effort Cardiovascular: Reports: Regular Rate, Regular Rhythm, No Murmurs GI/Abdominal Exam: Normal Bowel Sounds Extremities: No Pedal Edema
== END 2021-05-18 13:40 | disposition home health service (06) | DRG 641 ==
LOC: KA.MS 11:55
PROVIDERS: ADMIT Internal Medicine; ATTEND Internal Medicine
DX: E87.1 Hypo-osmolality and hyponatremia (principal); E86.1 Hypovolemia; R39.15 Urgency of urination; N81.10 Cystocele, unspecified; E03.9 Hypothyroidism, unspecified; G47.00 Insomnia, unspecified; M81.0 Age-related osteoporosis without current pathological fracture; H91.90 Unspecified hearing loss, unspecified ear; Z20.822 Contact with and (suspected) exposure to COVID-19; M54.16 Radiculopathy, lumbar region; Z85.3 Personal history of malignant neoplasm of breast; Z88.2 Allergy status to sulfonamides; Z88.0 Allergy status to penicillin; Z79.890 Hormone replacement therapy; Z79.899 Other long term (current) drug therapy; Z90.49 Acquired absence of other specified parts of digestive tract; Z90.710 Acquired absence of both cervix and uterus; M54.5 Low back pain
CPT/HCPCS: 36415; 80048; 85025; 97161-GP; A9270-GY; J2405; J7030; U0002

== ENCOUNTER 2022-01-03 07:10 | Observation (INO) | payer MEDICARE, BC ==
[2022-01-03] MEDS ORDERED: Ondansetron 4 MG/2 ML SDV IVPUSH ONE (07:21)
[2022-01-03] MEDS ORDERED: Sodium Chloride 0.9% 1,000 ML IV ONE (07:22)
[2022-01-03 07:45] LABS: ANION GAP 14.4 mmol/L (5-15); SODIUM,NA 121 mmol/L (136-145)
[2022-01-03 07:49] LABS: CHLORIDE,CL 85 mmol/L (98-107)
[2022-01-03] MEDS ORDERED: Ondansetron 4 MG/2 ML SDV IV PRN (09:46)
[2022-01-03] MEDS ORDERED: traMADol 50 MG Tab PO PRN (09:50)
[2022-01-03] MEDS ORDERED: FLUOCINONIDE TOP PRN (09:50)
[2022-01-03] MEDS ORDERED: traMADol 50 MG Tab - PTOM PO PRN (10:33)
[2022-01-03] MEDS: NS + KCl 20mEq/L 1,000 ML IV SCH ×2 (10:33→17:18)
[2022-01-03] MEDS: Acetaminophen/HYDROcodone 325-5 MG Tab PO PRN (15:07)
[2022-01-03 18:14] LABS: CHLORIDE,CL 93 mmol/L (98-107); SODIUM,NA 122 mmol/L (136-145)
[2022-01-04] MEDS: NS + KCl 20mEq/L 1,000 ML IV SCH (01:15)
[2022-01-04] MEDS: LEVOTHYROXINE 88 MCG PO SCH ×2 (05:54→06:34)
[2022-01-04] MEDS: Acetaminophen/HYDROcodone 325-5 MG Tab PO PRN (08:23)
[2022-01-04] MEDS: Calcium Citrate/Vitamin D3 315 MG-250 Unit Tab PO SCH (08:23)
[2022-01-04 08:58] LABS: ANION GAP 4.5 mmol/L (5-15); CHLORIDE,CL 99 mmol/L (98-107); SODIUM,NA 121 mmol/L (136-145)
[2022-01-04] MEDS: Pregabalin 25 MG Cap PO SCH ×2 (09:31→20:08)
[2022-01-04] MEDS: Sodium Chloride 0.9% 1,000 ML IV SCH ×2 (10:01→18:28)
[2022-01-05] MEDS: Sodium Chloride 0.9% 1,000 ML IV SCH (02:07)
[2022-01-05] MEDS: Acetaminophen/HYDROcodone 325-5 MG Tab PO PRN (05:07)
[2022-01-05] MEDS: LEVOTHYROXINE 88 MCG PO SCH ×2 (05:50→06:31)
[2022-01-05 08:02] LABS: ANION GAP 8.8 mmol/L (5-15); CHLORIDE,CL 99 mmol/L (98-107); SODIUM,NA 132 mmol/L (136-145)
[2022-01-05] MEDS: Calcium Citrate/Vitamin D3 315 MG-250 Unit Tab PO SCH (08:30)
[2022-01-05] MEDS: Pregabalin 25 MG Cap PO SCH (08:30)
[2022-01-05 12:23] LABS: ANION GAP 8.3 mmol/L (5-15); CHLORIDE,CL 96 mmol/L (98-107); SODIUM,NA 130 mmol/L (136-145)
[2022-01-05] MEDS ORDERED: Lisinopril 10 MG Tab PO SCH (13:00)
[2022-01-05 18:26] VITALS: BP 146/90; PULSE 81
== END 2022-01-05 18:42 | disposition home or self-care (01) ==
LOC: KA.ED 07:10 → KA.MS 08:50
PROVIDERS: ADMIT Internal Medicine; ATTEND Internal Medicine
DX: E87.1 Hypo-osmolality and hyponatremia (principal); E87.6 Hypokalemia; G89.29 Other chronic pain; H54.7 Unspecified visual loss; E03.9 Hypothyroidism, unspecified; M48.061 Spinal stenosis, lumbar region without neurogenic claudication; Z88.2 Allergy status to sulfonamides; Z88.0 Allergy status to penicillin; Z20.822 Contact with and (suspected) exposure to COVID-19; Z79.890 Hormone replacement therapy; Z79.899 Other long term (current) drug therapy; Z66 Do not resuscitate
CPT/HCPCS: 36415; 80048; 80053; 82435; 83735; 84295; 84439; 84443; 84484; 85025; 96374; 99285; A9270; G0378; J2405; J3480; J7030; U0002

== ENCOUNTER 2022-05-24 16:43 | Emergency (ER) | payer MEDICARE, BC ==
[2022-05-24 18:07] VITALS: BP 144/67; PULSE 78
== END 2022-05-24 18:07 | disposition home or self-care (01) ==
LOC: KA.ED 16:43
DX: M79.661 Pain in right lower leg (principal); E03.9 Hypothyroidism, unspecified; Z88.0 Allergy status to penicillin; Z88.2 Allergy status to sulfonamides; Z79.899 Other long term (current) drug therapy
CPT/HCPCS: 36415; 85379; 99283

== ENCOUNTER 2022-05-29 09:53 | Emergency (ER) | payer MEDICARE, BC ==
[2022-05-29] MEDS ORDERED: Sodium Chloride 0.9% 10 ML Syringe FLUSH PRN (09:54)
[2022-05-29] MEDS ORDERED: Sodium Chloride 0.9% 1,000 ML IV ONE (09:56)
[2022-05-29 10:25] VITALS: BP 132/79; PULSE 72
[2022-05-29 10:29] LABS: ANION GAP 13.1 mmol/L (5-15)
== END 2022-05-29 11:48 | disposition home or self-care (01) ==
LOC: KA.ED 09:53
DX: R55 Syncope and collapse (principal); E03.9 Hypothyroidism, unspecified; Z88.0 Allergy status to penicillin; Z88.2 Allergy status to sulfonamides; Z79.899 Other long term (current) drug therapy
CPT/HCPCS: 36415; 70450; 71045; 80053; 81001; 82947; 83605; 84484; 85025; 93010; 96360; 99284; 99285-25; J7030